=== PATIENT | female | born 2000 | race Caucasian/White ===

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

== ENCOUNTER 2024-11-11 07:36 | Outpatient (CLI) | payer BC | END 2024-11-11 07:37 | disposition home or self-care (01) | LOC: SCSMRI 07:36 | PROVIDERS: ATTEND Psychiatry & Neurology Neurology | DX: G40.909 Epilepsy, unspecified, not intractable, without status epilepticus (principal) | CPT/HCPCS: 70553; 76376 ==